=== PATIENT | female | born 1985 | race American Indian/Alaskan Native ===

== ENCOUNTER 2020-06-21 21:19 | Emergency (ER) | payer OTHER ==
[2020-06-21 21:28] VITALS: BP 137/90
--- NOTE | 2020-06-21 21:39 | Emergency Department Report ---
- General Chief Complaint: Pain General Stated Complaint: BODYACHES Time Seen by Provider: 06/21/20 21:27 Source: patient Mode of arrival: Ambulatory Limitations: No Limitations - History of Present Illness Initial Comments: Obese -[place] female past no history of abscess emerge department complaining of cough congestion with some coryza and wheezing is after taking a long car ride with some persons she normally but not in contact with states that she has been having progressively worsening symptoms since the onset loss of taste and smell and more nausea with a couple episodes of vomiting on yesterday and the sensation of increased bowel MD Complaint: cough, rhinorrhea, nasal congestion -: Gradual Consistency: constant Worsens With: nothing Associated Symptoms: denies other symptoms, rhinorrhea, nasal congestion, cough (With a history of asthma and had usual inhaler more often the past couple days), nausea, vomiting (once or twice yesterday) Treatments Prior to Arrival: none - Related Data Previous Rx's Medication Instructions Recorded Last Taken Type Ondansetron [Zofran ODT TAB] 8 mg PO Q12HR #14 tab.rapdis 06/21/20 Unknown Rx predniSONE [Deltasone] 50 mg PO QDAY #5 tab 06/21/20 Unknown Rx Allergies Allergy/AdvReac Type Severity Reaction Status Date / Time bismuth subsalicylate Allergy Unknown Verified 06/21/20 21:28 [From Pepto-Bismol] shellfish derived Allergy Unknown Verified 06/21/20 21:28 ED Review of Systems ROS: Stated complaint: BODYACHES Other details as noted in HPI Comment: All other systems reviewed and negative ED Past Medical Hx - Past Medical History Previous Medical History?: Yes Hx Asthma: Yes - Social History Smoking Status: Never Smoker Substance Use Type: None - Medications Home Medications: Home Medications Medication Instructions Recorded Confirmed Last Taken Type Ondansetron [Zofran ODT TAB] 8 mg PO Q12HR #14 tab.rapdis 06/21/20 Unknown Rx predniSONE [Deltasone] 50 mg PO QDAY #5 tab 06/21/20 Unknown Rx ED Physical Exam - General Limitations: No Limitations General appearance: alert, in no apparent distress - Head Head exam: Present: atraumatic, normocephalic - Eye Eye exam: Present: normal appearance, PERRL, EOMI - ENT ENT exam: Present: normal exam, mucous membranes moist, TM's normal bilaterally, other (Nasal congestion bilaterally) - Neck Neck exam: Present: normal inspection, full ROM - Respiratory Respiratory exam: Present: normal lung sounds bilaterally, rhonchi. Absent: respiratory distress, wheezes, chest wall tenderness, accessory muscle use - Cardiovascular Cardiovascular Exam: Present: regular rate, normal rhythm. Absent: bradycardia, tachycardia, systolic murmur, diastolic murmur, rubs, gallop - GI/Abdominal GI/Abdominal exam: Present: soft, normal bowel sounds. Absent: distended, tenderness - Extremities Exam Extremities exam: Present: normal inspection, full ROM, normal capillary refill - Back Exam Back exam: Present: normal inspection. Absent: CVA tenderness (R), CVA tenderness (L), muscle spasm, paraspinal tenderness - Neurological Exam Neurological exam: Present: alert, oriented X3, CN II-XII intact - Psychiatric Psychiatric exam: Present: normal affect, normal mood - Skin Skin exam: Present: warm, dry, intact, normal color. Absent: rash, cyanosis, diaphoretic ED Course Vital Signs 06/21/20 21:23 Temperature 97.9 F Pulse Rate 96 H Respiratory 18 Rate Blood Pressure 137/90 O2 Sat by Pulse 99 Oximetry ED Medical Decision Making - Radiology Data Radiology results: report reviewed Referring Physician:JESSICA JACKSONPatient Name:SURJIT PATELatikathy ID:[id number] of :[id number]:FemaleAccession:[id number] Date:[id number] Status:Finalized Findings [facility] [address] [place] [address] XRay Report Signed Patient: SURJIT DERAS MR#: [id number] 6 : 1985 Acct:[id number] Age/Sex: 35 / F ADM Date: 06/21/20 Loc: ED Attending Dr: Ordering Physician: UMBERTO MORAN Date of Service: 06/21/20 Procedure(s): XR chest routine 2V Accession Number(s): [id number] cc: UMBERTO MORAN Fluoro Time In Minutes: CHEST 2 VIEWS INDICATION / CLINICAL INFORMATION: cough. COMPARISON: None available. FINDINGS: SUPPORT DEVICES: None. HEART / MEDIASTINUM: No significant abnormality. LUNGS / PLEURA: No significant pulmonary or pleural abnormality. No pneumothorax. ADDITIONAL FINDINGS: No significant additional findings. IMPRESSION: 1. No acute findings. Signer Name: Osvaldo Das MD Signed: 06/21/2020 10:00 PM Workstation Name: [id number] Transcribed By: Dictated By: OSVALDO DAS Electronically Authenticated By: OSVALDO DAS Signed Date/Time: 06/21/202199 DD/ 58 TD/TT: - Medical Decision Making This 35-year-old -[place] female patient presents with symptoms suspicious for likely viral upper respiratory tract infection. Differential includes bacterial pneumonia, sinusitis, allergic rhinitis. Do not suspect underlying Cardiopulmonary process. I considered but think unlikely dangerous cause of this patient symptoms to include acute coronary syndrome, CHF or COPD exacerbations, pneumonia, pneumothorax. Patient is nontoxic appearing and not in need of emergent medical intervention. This patient presents to the em ergency department with fever and lower respiratory symptoms concerning for viral syndrome including flu and COVID-19. Patient has suspicion and is for COVID-19 infection. Differential diagnosis includes other viral causes of lower respiratory symptoms, pneumonia, asthma, bronchitis. Patient is well-appearing with acceptable vitals, lacks comorbidities admission and a reassuring physical examination and is safe to be discharged home nasal swab for COVID testing is recommended. Provide strict return precautions and instructions on self isolation/quarantine and anticipatory guidance. Plan: Reassurance, reassessment, [id number] medications, discharge with PCP follow-up Critical care attestation.: If time is entered above; I have spent that time in minutes in the direct care of this critically ill patient, excluding procedure time. ED Disposition Clinical Impression: Viral syndrome Disposition: DC-01 TO HOME OR SELFCARE Is pt being admited?: No Does the pt Need Aspirin: No Condition: Stable Instructions: Viral Respiratory Infection, [id number]-[id number], Viral Illness, Adult, COVID-19, COVID-19 Frequently Asked Questions, Infection Prevention in the Home Referrals: [facility] [Provider Group] - 3-5 Days YUE MANCILLA MD [Staff Physician] - 3-5 Days
--- NOTE | 2020-06-21 22:04 | XRay Report ---
CHEST 2 VIEWS INDICATION / CLINICAL INFORMATION: cough. COMPARISON: None available. FINDINGS: SUPPORT DEVICES: None. HEART / MEDIASTINUM: No significant abnormality. LUNGS / PLEURA: No significant pulmonary or pleural abnormality. No pneumothorax. ADDITIONAL FINDINGS: No significant additional findings. IMPRESSION: 1. No acute findings. Signer Name: Osvaldo Parson MD Signed: 06/21/2020 10:00 PM Workstation Name: [id number]
== END 2020-06-21 23:05 | disposition home or self-care (01) ==
LOC: ED 21:19
DX: B34.9 Viral infection, unspecified (principal); J45.909 Unspecified asthma, uncomplicated; Z79.899 Other long term (current) drug therapy; Z91.013 Allergy to seafood; Z88.8 Allergy status to other drugs, medicaments and biological substances; Z20.828 Contact with and (suspected) exposure to other viral communicable diseases
CPT/HCPCS: 71046; 99283